=== PATIENT | female | born 2000 | race Hispanic/Latino ===

== ENCOUNTER → 2025-05-22 13:19 | Outpatient (CLI) | payer OTHER, SELFPAY ==
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
== END ==
PROVIDERS: Referring Provider Nurse Practitioner Family; Visit Provider Nurse Practitioner Family
DX: S43.431A Superior glenoid labrum lesion of right shoulder, initial encounter (principal); M25.511 Pain in right shoulder
CPT/HCPCS: 73221

== ENCOUNTER → 2025-07-22 14:40 | Outpatient (CLI) | payer OTHER, SELFPAY ==
[2025-07-22 15:00] LABS: Add Manual Diff / Slide Review NO; Hematocrit 36.1 % (36-46); Hemoglobin 12.7 g/dL (12.0-16.0); Lymphocytes Absolute Auto 1900 /uL (1100-4500); Mean Corpuscular HGB Conc 35.1 % (30-36); Mean Corpuscular Hemoglobin 32.7 PG (26-34); Mean Corpuscular Volume 93.2 fL (80-100); Platelet Count 217 X10^3/uL (150-400)
[2025-07-23 15:50] LABS: Hepatitis B Surface Antigen NEGATIVE s/c (NEGATIVE)
[2025-07-23 16:00] LABS: HIV 1 & 2 Ab/Ag 4th Gen Combo NEGATIVE (NEGATIVE); Hep C Virus Ab w/Reflex Quant NEGATIVE s/c (NEGATIVE)
== END ==
PROVIDERS: Referring Provider Student in an Organized Health Care Education/Training Program; Visit Provider Student in an Organized Health Care Education/Training Program
DX: Z01.83 Encounter for blood typing (principal); Z13.0 Encounter for screening for diseases of the blood and blood-forming organs and certain disorders involving the immune mechanism; Z11.59 Encounter for screening for other viral diseases; Z11.4 Encounter for screening for human immunodeficiency virus [HIV]
CPT/HCPCS: 36415; 80055; 86787; 86803; 86850; 86900; 86901; 87086; 87389

== ENCOUNTER → 2025-08-09 12:44 | Outpatient (CLI) | payer OTHER, SELFPAY ==
[2025-08-09 13:57] LABS: Natera Collection Specimen Collected
== END ==
PROVIDERS: Referring Provider Student in an Organized Health Care Education/Training Program; Visit Provider Student in an Organized Health Care Education/Training Program
DX: Z34.81 Encounter for supervision of other normal pregnancy, first trimester (principal); Z36.0 Encounter for antenatal screening for chromosomal anomalies
CPT/HCPCS: 36415

== ENCOUNTER → 2025-09-25 13:07 | Outpatient (CLI) | payer OTHER, SELFPAY ==
--- NOTE | 2025-09-25 13:08 | DI.US.S_ITS ---
PROCEDURE: US OB >= 14 WEEKS FETUS INDICATIONS: 20 week anatomy scan OUTSIDE/PRIOR DATING DATA: Last menstrual period (LMP): 05/15/2025. LMP-based estimated date of delivery (ANJEL): 02/19/2026. First dating scan (date and location): 07/22/2025. Estimated date of delivery (ANJEL) from first dating scan: 02/15/2026. The calculations are made using the clinical ANJEL of 02/19/2026. TECHNIQUE: Real-time scanning was performed of the fetus, with image documentation and biometric measurements. Endovaginal scanning: Not performed COMPARISON: None. FINDINGS: General: A single living intrauterine gestation is present. Presentation: Breech. Placenta: Placental position is posterior, without previa. Amniotic fluid index: 14.6 cm, normal range is 5-24 cm. Single deepest vertical pocket is 4.7 cm. heart rate: 153 beats per minute. Maternal cervical canal: 5 cm long. Normal lower limit is 2.5 cm. biometrics: Biparietal diameter: 4.7 cm, 20 weeks 1 day Head circumference: 16.6 cm, 19 weeks 2 days Abdominal circumference: 14.5 cm, 19 weeks 5 days Femur length: 2.9 cm, 18 weeks 6 days Clinically estimated gestational age: 19 weeks 0 days Composite gestational age from present scan: 19 weeks 4 days Estimated weight and percentile: 289 g, 68th percentile Anatomic survey: Neuro: Ventricles are non-dilated at less than 10 mm. Cisterna magna is normal at 3-11 mm. Cerebellum is normal in size and morphology. Nuchal skin fold: Normal at less than 6 mm between 14-21 weeks gestational age. Face: Nose and lips, facial profile are normal. Spine: No evidence for spina bifida. Heart: 4-chambered heart is present, with normal ventricular outflow tracts. Diaphragm: Diaphragm is intact. Stomach: Left-sided stomach is present. Kidneys: No hydronephrosis. Normal is less than 5 mm in 2nd trimester, less than 7 mm in 3rd trimester. Cord: 3-vessel cord has orthotopic insertion. Bladder: Normal in size. Extremities: All 4 extremities identified. Right ovarian anechoic cyst measuring 7.6 x 5.1 x 5 cm. No suspicious blood flow. Left ovary is not well seen. IMPRESSION: 1. [place] living intrauterine at 19 weeks 4 days based on today's ultrasound. This is concordant with prior dating. Fetus is in the 68th percentile for weight. 2. Normal placenta and amniotic fluid. 3. Normal and complete anatomic survey. 4. Right ovarian anechoic cyst measuring 7.6 cm. -Follow-up ultrasound would be helpful given its large size. We strive to produce accurate, complete, and clear reports of imaging services. To assist us in improving patient care, this report was composed using standard report templates and voice recognition software. Therefore, it may contain abnormal punctuation, insertions and/or omissions. Occasional wrong-word or sound-alike substitutions may occur. Though we review the report and make efforts to correct it, we do recommend that the report be read carefully in proper context to recognize any text inaccuracies. Dictated by: Hever Cox M.D. on 09/26/2025 at 11:30 Approved by: Hever Cox M.D. on 09/26/2025 at 11:37
== END ==
LOC: US 13:08
PROVIDERS: Referring Provider Obstetrics & Gynecology; Visit Provider Obstetrics & Gynecology
DX: Z34.02 Encounter for supervision of normal first pregnancy, second trimester (principal); N83.201 Unspecified ovarian cyst, right side; Z3A.19 19 weeks gestation of pregnancy
CPT/HCPCS: 76811

== ENCOUNTER 2025-11-05 15:06 | Emergency (ER) | payer OTHER, SELFPAY ==
[2025-11-05 15:13] VITALS: BP 134/83; PULSE 85; RESP 17; TEMP 36.8; O2SAT 100; BMI 27.3
--- OUTSIDE RECORDS SUMMARY | 2025-11-05 15:16 | XMS_ITS | Encounter Summary ---
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 Name Role Phone Unavailable Primary Care Provider Unavailabl e Encounter Details Date Type Department Care Team (Late st Contact Info) Description 04/29/2025 Telephone [facility] [address] [place] [address] Provider, [place] [address] Social History Tobacco Use Types Packs/Day Years Used Date Smoking Tobacco: Never Assessed Comments Unknown Sex and Gender Information Value Date Recorded Sex Assigned at Not on file Legal Sex Female 3:34 PM PDT Gender Identity Not on file Sexual Orientation Not on file documented as of this encounter Plan of Treatment Not on file documented as of this encounter Visit Diagnoses Not on filedocumented in this encounter
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
[2025-11-05 19:12] VITALS: BP 117/68; PULSE 72; O2SAT 99
== END 2025-11-05 19:13 | disposition home or self-care (01) ==
PROVIDERS: Emergency Provider Physician Assistant
DX: O9A.212 Injury, poisoning and certain other consequences of external causes complicating pregnancy, second trimester (principal); S00.83XA Contusion of other part of head, initial encounter; S09.8XXA Other specified injuries of head, initial encounter; R22.1 Localized swelling, mass and lump, neck; R68.84 Jaw pain; Z3A.26 26 weeks gestation of pregnancy
CPT/HCPCS: 70450; 70486; 72125; 99281; 99284